=== PATIENT | female | born 1950 | race Caucasian/White ===

== ENCOUNTER → 2020-08-11 | Outpatient (CLI) | payer MEDICARE ==
[~2020-08-11] MED LIST: AMLODIPINE BESYL5 MG PO; CALCIUM 600 +1 EAC8 PO; CENTRUM SILVER1 EAC3 PO; CRESTOR20 MG PO; FISH OIL PO; GABAPENTIN600 MG PO; HYDROCODON-ACE1 EAC9 PO; LEVOFLOXACIN500 MG PO; LEVOTHYROXINE75 MCG PO; LISINOPRIL-HCT1 EAC1 PO; MAXALT PO; MAXALT10 MG PO; OSCAL ULTRA PO; VENLAFAXINE HCL75 MG PO; VITAMIN B12 PO; VITAMIN B12-FO1 EACH PO; VITAMIN E400 UNI4 PO; ZYRTEC10 M3 PO
== END ==
LOC: CT 15:38
PROVIDERS: ATTEND Family Medicine
DX: R10.31 Right lower quadrant pain (principal)
CPT/HCPCS: 74176